=== PATIENT | female | born 1955 | race African-American/Black ===

== ENCOUNTER → 2020-05-02 | Day surgery (SDC) | payer OTHER, MEDICARE ==
[~2020-05-02] MED LIST: BACLOFEN10 MG PO; BIOTIN5000 MC1 PO; CLARITIN10 MG PO; CLOPIDOGREL75 MG PO; DILTIAZEM ER300 MG PO; EZETIMIBE10 MG PO; FIBER500 MG PO; FOLIC ACID1 M1 PO; GABAPENTIN400 MG PO; GARLIC OIL1000 MG PO; LEVOTHYROXINE112 MCG PO; LISINOPRIL40 MG PO; METHOTREXATE2.5 MG PO; MOTRIN600 MG PO; MULTIPLE VITAM1 EACH PO; NITROGLYCERIN0.4 MG SL; OMEGA 3-6-9 11200 MG PO; ORENCIA CL125 MG/1 M SC; PANTOPRAZOLE SO40 MG PO; TRAMADOL HCL50 MG PO; TRIAMTERENE-HC1 EACH PO; VITAMIN B-650 MG PO; ZOLPIDEM TARTRA10 MG PO
[2020-05-02 07:51] LABS: HCT 40.5 % (37.0-47.0); MCH 22.2 pg (25.0-31.0); MCHC 32.1 g/dL (32.0-36.0); MCV 69.2 fL (78.0-100.0); MPV 10.1 fL (6.0-9.5); RBC 5.85 M/uL (4.20-5.40); RDW 18.3 % (11.5-14.0); WBC 7.4 K/uL (4.0-10.5)
[2020-05-02 08:05] LABS: BILIRUBIN - TOTAL 0.8 mg/dL (0.2-1.0); BUN/CREAT RATIO (CALC) 18.7 RATIO; CREATININE 0.75 mg/dL (0.51-0.95); GLOBULIN (CALCULATION) 3.6 g/dL; POTASSIUM 3.3 mmol/L (3.5-5.1); TOTAL PROTEIN 7.6 g/dL (6.4-8.2)
== END | disposition home or self-care (01) ==
LOC: FAS 07:15
PROVIDERS: Surgery
DX: Z12.11 Encounter for screening for malignant neoplasm of colon (principal); K57.30 Diverticulosis of large intestine without perforation or abscess without bleeding; K59.09 Other constipation; K21.9 Gastro-esophageal reflux disease without esophagitis; I25.10 Atherosclerotic heart disease of native coronary artery without angina pectoris; E11.9 Type 2 diabetes mellitus without complications; E03.9 Hypothyroidism, unspecified; I10 Essential (primary) hypertension; M06.9 Rheumatoid arthritis, unspecified; G47.30 Sleep apnea, unspecified; Z90.710 Acquired absence of both cervix and uterus; Z90.49 Acquired absence of other specified parts of digestive tract; Z98.890 Other specified postprocedural states; Z88.8 Allergy status to other drugs, medicaments and biological substances; Z20.822 Contact with and (suspected) exposure to COVID-19; Z80.0 Family history of malignant neoplasm of digestive organs; Z78.9 Other specified health status; Z77.22 Contact with and (suspected) exposure to environmental tobacco smoke (acute) (chronic); Z95.818 Presence of other cardiac implants and grafts
CPT/HCPCS: 36415; 80053; J1610; J2250; J2704; J7120